=== PATIENT | female | born 2000 | race Two or more races ===

== ENCOUNTER 2025-01-12 04:25 | Emergency (ER) | payer OTHER ==
[~2025-01-12] VITALS: Ht 162.6 cm; Wt 77.1 kg
[2025-01-12] MEDS ORDERED: ZOFRAN8 MG (04:55)
[2025-01-12] MEDS ORDERED: FAMOTIDINE/PF 20 MG/2 ML VIAL IV PUSH STA ×2 (04:59→06:04)
[2025-01-12] MEDS ORDERED: ONDANSETRON HCL 2 MG/ML VIAL IV STA ×2 (04:59→06:03)
[2025-01-12] MEDS ORDERED: 0.9 % SODIUM CHLORIDE 1,000 ML IV STA (04:59)
[2025-01-12 05:22] LABS: BASO % 0.2 % (0.1-1.2); EOS # 0.01 (0.04-0.54); EOS % 0.1 % (0.7-7.0); LYMPH # 0.58 (1.18-3.74); LYMPH % 5.7 % (19.3-53.1); MEAN PLATELET VOLUME 9.60 fl (9.4-12.4); MONO # 0.67 (0.24-0.82); MONO % 6.6 % (4.7-12.5); NEUT # 8.80 (1.56-6.13); NEUT % 86.9 % (34.0-71.1); RED CELL DISTRIBUTION WIDTH 13.2 % (11.6-14.4)
[2025-01-12 06:01] LABS: ALT/SGPT 64.0 U/L (12-78); AST/SGOT 29.0 U/L (15-37); BILIRUBIN TOTAL 0.78 mg/dL (0.3-1.2); BUN CREA RATIO 14.0 (7.0-25.0); CREATININE SERUM 0.77 mg/dL (0.55-1.02); GFR 92.1; GLOBULINA 3.7 G/DL (2.4-3.5); GLUCOSE FASTING 125.0 mg/dL (65-100); OSMOLALITY SERUM 280.0 MOSM/KG (275-295)
[2025-01-12] MEDS ORDERED: FAMOTIDINE/PF 20 MG/2 ML VIAL ONE (06:04)
[2025-01-12] MEDS ORDERED: ONDANSETRON HCL 2 MG/ML VIAL ONE (06:04)
[2025-01-12] MEDS ORDERED: ZOFRAN8 MG PO (10:40)
[2025-01-12] MEDS ORDERED: PEPCID AC20 MG PO (10:40)
== END 2025-01-12 11:15 | disposition home or self-care (01) ==
LOC: ER 04:25
PROVIDERS: General Practice
DX: O99.611 Diseases of the digestive system complicating pregnancy, first trimester (principal); K92.89 Other specified diseases of the digestive system; Z3A.01 Less than 8 weeks gestation of pregnancy; K52.89 Other specified noninfective gastroenteritis and colitis; Z88.2 Allergy status to sulfonamides; Z88.8 Allergy status to other drugs, medicaments and biological substances
CPT/HCPCS: 36415; 76817; 96365; 96366; 99284; J2405; J3490; J7030